=== PATIENT | male | born 1935 | race Caucasian/White ===

== ENCOUNTER 2018-10-20 12:16 | Inpatient (IN) ==
[2018-10-20] MEDS ORDERED: *HR* HYDROcodone/Acet 5/325 mg TABLET PO PRN (14:33)
[2018-10-20] MEDS: Amoxicillin/Clavulanate 500 MG TABLET PO SCH (15:36)
[2018-10-20] MEDS: Gabapentin 300 MG CAPSULE PO SCH ×2 (15:36→21:06)
--- NOTE | 2018-10-20 19:37 | Internal Med History&Physical ---
Date of Encounter: 10/20/18 Time of Encounter: 19:00 Assessment and Plan (1) Frequent falls Current visit: No Status: Acute PT and OT evaluation will be ordered. (2) Urinary retention due to benign prostatic hyperplasia Current visit: No Status: Acute Continue Flomax, Proscar, and Haines catheter with urology follow-up as scheduled. (3) Myalgia Current visit: Yes Status: Acute Workup will be ordered including RAMOS and sedimentation rate. (4) Hypothyroidism Current visit: Yes Status: Chronic TSH was normal at 2.216 on 10/16/2018. Continue present dose Synthroid. Qualifiers: Hypothyroidism type: unspecified Qualified Code(s): E03.9 - Hypothyroidism, unspecified (5) Atrial fibrillation Current visit: No Status: Chronic Continue Xarelto Qualifiers: Atrial fibrillation type: chronic Qualified Code(s): I48.2 - Chronic atrial fibrillation (6) Anemia Current visit: No Status: Acute Anemia testing 10/17/2018 showed iron 36, transferrin saturation 16%, transferrin 158, and ferritin 434. B12 and folate levels checked November 2017 were unremarkable. Suspect anemia due primarily to chronic kidney disease and/ or MDS. Qualifiers: Anemia type: unspecified type Qualified Code(s): D64.9 - Anemia, unspecified Internal Medicine - H&P: HPI Chief complaint: Urinary retention, falls Admitted From: Hospital to Hospital Transfer Plans for Post Hospital Care: Home History of present illness: Mr. Mera is a 83 year old male who was hospitalized at [facility] October 16- after presenting with progressive weakness and multiple falls at home. He had not sustain significant injury from the falls. He was found to have urinary retention despite use of financed her ride and Flomax and had Haines catheter placed which has remained present time. He was discharged [facility] swing bed for rehabilitation therapy prior to returning to independent living at home. He states his biggest complaint at present is "hurting all over". He reports the myalgias have been present for at least 6 months without etiology found. Reports present analgesics do not significantly relieve the pain and he has not slept well for several months. CT of thoracic and lumbar spine at [facility] showed compression fractures involving T3, T11, T12, and L2. He denies significant arthritis, gout, or other documented bone joint or muscle disorders. He does not use a cane or walker at home for ambulation. Past Med Surg Social Fam HX - Past Medical History Medical history: cancer, renal disease, thyroid disease Additional medical history: colon cancer, enlarged prostate Psychiatric history: no psych history - Past Surgical History Surgical History: cholecystectomy, colectomy Additional surgical history: colostomy - Social History Smoking Status: Never smoker Smokeless Tobacco Status: No Alcohol use: none Drug use: none Internal Medicine - H&P: Meds Rivaroxaban [Xarelto] 15 mg PO DAILY 05/21/18 [History] Furosemide [Lasix] 40 mg PO DAILY 07/07/18 [History] DULoxetine [Cymbalta] 60 mg PO DAILY 10/16/18 [History] Finasteride [Proscar] 5 mg PO DAILY 10/16/18 [History] Levothyroxine Sodium 88 mcg PO QAM 10/16/18 [History] Tamsulosin [Flomax] 0.4 mg PO DAILY 10/16/18 [History] Amoxicillin/Clavulanate [Augmentin] 500 mg PO BIDWM #6 tablet 10/20/18 [Rx] Gabapentin [Neurontin] 300 mg PO TID 10 Days #30 capsule 10/20/18 [Rx] HYDROcodone/Acet 5/325 mg [Mccall 5-325 mg] 1 tab PO Q8HR PRN 5 Days #15 tablet 10/20/18 [Rx] Allergy/AdvReac Type Severity Reaction Status Date / Time No Known Allergies Allergy Verified 08/04/18 12:04 All Systems PM: A 10-system review of systems was performed and is negative for pertinent findings except as documented above in the HPI. Review of systems: Gen.: He states his weight has been stable for several months Cardiovascular: He has history of chronic atrial fibrillation her denies hypertension AR heart failure angina DVT or pulmonary embolus Respiratory: He is a lifelong nonsmoker and denies chronic lung disease GI: He has had cholecystectomy remotely. He reports colon cancer with total colectomy and development of ileostomy approximately 2013. He denies disorders of his liver or exocrine pancreas. 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 He has an indwelling Haines at present for urinary retention Neurologic: He reports having a stroke approximately 6 months ago with no permanent neurologic deficit. He reports an embolectomy procedure (?) at the time of the "stroke". He denies seizures. Endocrine: He denies diabetes thyroid disease or hyperlipidemia. Medication list includes levothyroxin. Hematology/oncology: He has chronic anemia. He has been diagnosed with MDS. He denies internal malignancies or other blood disorders. Psychiatric: He denies anxiety depression or other mental health issues. Mus[place] skeletal: As per history of present illness - Constitutional Vitals: Temp Pulse Resp BP Pulse Ox 98.6 F 66 16 144/78 96 10/20/18 19:00 10/20/18 19:02 10/20/18 19:02 10/20/18 19:02 10/20/18 19:02 Exam: Gen.: He is a well-developed well-nourished male lying in bed who appears in no severe distress HEENT: Head is atraumatic and normal cephalic. Eyes: EOMI. There is no scleral icterus. Mouth: Mucosa is moist. Neck: Supple and nontender. There is no thyromegaly or adenopathy noted. Heart: Irregularly irregular without murmurs or gallops Lungs: No wheezes or crackles are heard. Abdomen: An ostomy bag is present in the right abdominal area. No masses or guarding are noted. Extremities: There is no pitting edema of his lower legs. He has minimal DJD changes of his hands. Neurologic: Mental status: He is talkative and a good historian. Cranial nerves: Smile is symmetric. Forehead wrinkles bilaterally. Tongue protrudes midline. EOMI. Motor: There is no pronator drift. Cerebellar: Finger to nose is intact bilaterally. Skin: Warm and dry
[2018-10-20] MEDS: *HR* HYDROcodone/Acet 5/325 mg TABLET PO SCH (21:41)
[2018-10-20] MEDS: traZODone 50 MG TABLET PO SCH (21:41)
[2018-10-21] MEDS: *HR* HYDROcodone/Acet 5/325 mg TABLET PO SCH ×6 (01:59→20:50)
[2018-10-21 06:44] LABS: Uric Acid 4.8 mg/dL (2.3-7.6)
[2018-10-21] MEDS: Furosemide 20 MG TABLET PO SCH (10:05)
[2018-10-21] MEDS: Finasteride 5 MG TABLET PO SCH (10:05)
[2018-10-21] MEDS: Gabapentin 300 MG CAPSULE PO SCH ×3 (10:05→20:50)
[2018-10-21] MEDS: Amoxicillin/Clavulanate 500 MG TABLET PO SCH ×2 (10:11→16:45)
--- NOTE | 2018-10-21 12:23 | Internal Med Progress Note ---
Date of Encounter: 10/21/18 Time of Encounter: 12:15 - Assessment and plan (1) Frequent falls Current Visit: No Status: Acute Assessment and plan: October 21. Continue PT/OT intervention. (2) Urinary retention due to benign prostatic hyperplasia Current Visit: No Status: Acute Assessment and plan: October 21. Continue Flomax, Proscar, and Haines catheter with urology follow-up as scheduled. (3) Myalgia Current Visit: Yes Status: Acute Assessment and plan: October 21. Workup in progress. Lab results unremarkable so far. (4) Hypothyroidism Current Visit: Yes Status: Chronic Assessment and plan: October 21. TSH was normal at 2.216 on 10/16/2018. Continue present dose Synthroid. Qualifiers: Hypothyroidism type: unspecified Qualified Code(s): E03.9 - Hypothyroidism, unspecified (5) Atrial fibrillation Current Visit: No Status: Chronic Assessment and plan: October 21. Continue Xarelto Qualifiers: Atrial fibrillation type: chronic Qualified Code(s): I48.2 - Chronic atrial fibrillation (6) Anemia Current Visit: No Status: Acute Assessment and plan: October 21. Anemia testing 10/17/2018 showed iron 36, transferrin saturation 16%, transferrin 158, and ferritin 434. B12 and folate levels checked November 2017 were unremarkable. Suspect anemia due primarily to chronic kidney disease and/ or MDS. Qualifiers: Anemia type: unspecified type Qualified Code(s): D64.9 - Anemia, unspecified - Subjective Interval history: October 21. He has no new complaints. He states he did not sleep any last night despite use of trazodone. - Constitutional Vitals: Temp Pulse Resp BP Pulse Ox 98.7 F 58 16 159/69 99 10/21/18 05:45 10/21/18 05:45 10/21/18 05:45 10/21/18 05:45 10/21/18 05:45 Exam: He is resting comfortably in bed and appears in no acute distress. His affect is overall cheerful. I reviewed his medications and lab results. Consult Discharge Plan - Plan Referrals: Michoacano Neal DO [Primary Care Provider] - 1 week
[2018-10-21 12:41] LABS: Vitamin B12 276 pg/mL (250-1100)
[2018-10-21 12:44] LABS: Vitamin D 25 Hydroxy 32 ng/mL (30-80)
[2018-10-21] MEDS: *HR* Rivaroxaban 15 MG TABLET PO SCH (16:45)
[2018-10-21] MEDS: traZODone 50 MG TABLET PO SCH (20:50)
[2018-10-22] MEDS: *HR* HYDROcodone/Acet 5/325 mg TABLET PO SCH ×7 (01:34→21:20)
[2018-10-22] MEDS: Amoxicillin/Clavulanate 500 MG TABLET PO SCH ×2 (09:47→16:59)
[2018-10-22] MEDS: Finasteride 5 MG TABLET PO SCH (09:48)
[2018-10-22] MEDS: Gabapentin 300 MG CAPSULE PO SCH ×3 (09:48→21:20)
[2018-10-22] MEDS: Furosemide 20 MG TABLET PO SCH (09:48)
--- NOTE | 2018-10-22 12:25 | Internal Med Progress Note ---
Date of Encounter: 10/22/18 Time of Encounter: 12:18 - Assessment and plan (1) Frequent falls Current Visit: No Status: Acute Assessment and plan: October 21. Continue PT/OT intervention. (2) Urinary retention due to benign prostatic hyperplasia Current Visit: No Status: Acute Assessment and plan: October 21. Continue Flomax, Proscar, and Haines catheter with urology follow-up as scheduled. (3) Myalgia Current Visit: Yes Status: Acute Assessment and plan: October 21. Workup in progress. Lab results unremarkable so far. October 22. ESR, uric acid, CK, and vitamin D unremarkable. Increase gabapentin. (4) Hypothyroidism Current Visit: Yes Status: Chronic Assessment and plan: October 21. TSH was normal at 2.216 on 10/16/2018. Continue present dose Synthroid. Qualifiers: Hypothyroidism type: unspecified Qualified Code(s): E03.9 - Hypothyroidism, unspecified (5) Atrial fibrillation Current Visit: No Status: Chronic Assessment and plan: October 21. Continue Xarelto Qualifiers: Atrial fibrillation type: chronic Qualified Code(s): I48.2 - Chronic atrial fibrillation (6) Anemia Current Visit: No Status: Acute Assessment and plan: October 21. Anemia testing 10/17/2018 showed iron 36, transferrin saturation 16%, transferrin 158, and ferritin 434. B12 and folate levels checked November 2017 were unremarkable. Suspect anemia due primarily to chronic kidney disease and/ or MDS. Qualifiers: Anemia type: unspecified type Qualified Code(s): D64.9 - Anemia, unspecified - Subjective Interval history: October 21. He has no new complaints. He states he did not sleep any last night despite use of trazodone. October 22. He has no new complaints. He states he slept more last night. He reports ongoing burning sensation/ paresthesias in his feet. - Constitutional Vitals: Temp Pulse Resp BP Pulse Ox 98.3 F 52 18 107/57 94 10/22/18 06:43 10/22/18 06:43 10/22/18 06:43 10/22/18 06:43 10/22/18 06:43 Exam: He is resting comfortably in bed and appears in no acute distress. His affect is overall cheerful. I reviewed his medications and lab results. Consult Discharge Plan - Plan Referrals: Ángel,Michoacano K, DO [Primary Care Provider] - 1 week
[2018-10-22] MEDS: *HR* Rivaroxaban 15 MG TABLET PO SCH (16:59)
[2018-10-22] MEDS: traZODone 50 MG TABLET PO SCH (21:20)
[2018-10-23] MEDS: *HR* HYDROcodone/Acet 5/325 mg TABLET PO SCH ×6 (03:00→21:32)
[2018-10-23] MEDS: Gabapentin 300 MG CAPSULE PO SCH ×3 (09:28→21:32)
[2018-10-23] MEDS: Amoxicillin/Clavulanate 500 MG TABLET PO SCH (09:28)
[2018-10-23] MEDS: Furosemide 20 MG TABLET PO SCH (09:28)
[2018-10-23] MEDS: Finasteride 5 MG TABLET PO SCH (09:29)
[2018-10-23 14:35] LABS: Aldolase, Serum 4.1 U/L (1.5-8.1)
[2018-10-23 14:53] LABS: ANA IgG by ELISA DETECTED (None Detected)
[2018-10-23] MEDS: *HR* Rivaroxaban 15 MG TABLET PO SCH (18:13)
[2018-10-23] MEDS: traZODone 50 MG TABLET PO SCH (21:32)
[2018-10-24] MEDS: *HR* HYDROcodone/Acet 5/325 mg TABLET PO SCH ×6 (03:42→21:33)
[2018-10-24 08:19] LABS: ANA HEp-2 IgG IFA <1:80 (<1:80)
[2018-10-24] MEDS: Gabapentin 300 MG CAPSULE PO SCH (09:46)
[2018-10-24] MEDS: Finasteride 5 MG TABLET PO SCH (09:46)
[2018-10-24] MEDS: Furosemide 20 MG TABLET PO SCH (09:47)
--- NOTE | 2018-10-24 14:37 | Internal Med Progress Note ---
Date of Encounter: 10/24/18 Time of Encounter: 14:25 - Assessment and plan (1) Frequent falls Current Visit: No Status: Acute Assessment and plan: October 21. Continue PT/OT intervention. (2) Urinary retention due to benign prostatic hyperplasia Current Visit: No Status: Acute Assessment and plan: October 21. Continue Flomax, Proscar, and Haines catheter with urology follow-up as scheduled. (3) Myalgia Current Visit: Yes Status: Acute Assessment and plan: October 21. Workup in progress. Lab results unremarkable so far. October 22. ESR, uric acid, CK, and vitamin D unremarkable. Increase gabapentin. October 24. RAMOS screen returned positive. Additional testing has been reflex ordered. Continue gabapentin. (4) Hypothyroidism Current Visit: Yes Status: Chronic Assessment and plan: October 21. TSH was normal at 2.216 on 10/16/2018. Continue present dose Synthroid. Qualifiers: Hypothyroidism type: unspecified Qualified Code(s): E03.9 - Hypothyroidism, unspecified (5) Atrial fibrillation Current Visit: No Status: Chronic Assessment and plan: October 21. Continue Xarelto Qualifiers: Atrial fibrillation type: chronic Qualified Code(s): I48.2 - Chronic atrial fibrillation (6) Anemia Current Visit: No Status: Acute Assessment and plan: October 21. Anemia testing 10/17/2018 showed iron 36, transferrin saturation 16%, transferrin 158, and ferritin 434. B12 and folate levels checked November 2017 were unremarkable. Suspect anemia due primarily to chronic kidney disease and/ or MDS. Qualifiers: Anemia type: unspecified type Qualified Code(s): D64.9 - Anemia, unspeci fied (7) Near syncope Current Visit: Yes Status: Resolved Assessment and plan: October 24. Now resolved. Etiology uncertain. Labs will be ordered. Orthostatic vital signs will be checked. - Subjective Interval history: October 21. He has no new complaints. He states he did not sleep any last night despite use of trazodone. October 22. He has no new complaints. He states he slept more last night. He reports ongoing burning sensation/ paresthesias in his feet. October 23. He developed significant weakness with decreased responsiveness while ambulating in the hallway with a therapist. He was assisted to a chair in the hallway by therapy staff. He denies dyspnea or pain at the present time. - Constitutional Vitals: Temp Pulse Resp BP Pulse Ox 98.1 F 56 16 145/63 99 10/24/18 06:39 10/24/18 12:32 10/24/18 12:32 10/24/18 12:32 10/24/18 12:32 Exam: He is sitting comfortably in a chair in the hallway and appears in no acute distress. Heart is regular without murmurs gallops or ectopics. Lungs are clear. I reviewed his medications and lab results. Consult Discharge Plan - Plan Referrals: Michoacano Neal DO [Primary Care Provider] - 1 week
[2018-10-24 16:19] LABS: Basophils % 0.2 %; Eosinophils # 0.1 K/mcL (0.0-0.6); Eosinophils % 2.3 %; Hematocrit 28.6 % (37.5-50.1); Hemoglobin 9.6 g/dL (12.9-16.9); Immature Granulocytes % 1.8 % (0-4); Lymphocytes % 18.2 %; Mean Corpuscular HGB Conc 33.6 g/dL (31.6-35.5); Mean Corpuscular Hemoglobin 33.3 pg (28.0-33.3); Mean Corpuscular Volume 99.3 fL (83.0-100.0); Mean Platelet Volume 10.5 fL (9.4-12.4); Monocytes # 0.6 K/mcL (0.0-1.3); Monocytes % 9.9 %; Neutrophils # 3.8 K/mcL (1.6-8.9); Platelet Count 234 K/mcL (140-400); Red Blood Count 2.88 M/mcL (4.19-5.50); Red Cell Distribution Width 14.7 % (11.5-14.5); Segmented Neutrophils % 67.6 %; White Blood Count 5.6 K/mcL (4.3-11.1)
[2018-10-24 16:32] LABS: Albumin 3.6 g/dL (3.5-5.7); Albumin/Globulin Ratio 1.3 (1.1-2.2); Bilirubin,Total 0.5 mg/dL (0.3-1.0); Calcium 9.5 mg/dL (8.6-10.3); Globulin 2.7 g/dL (2.4-3.5); Magnesium 1.9 mg/dL (1.6-2.6); Potassium 4.4 mEq/L (3.5-5.1); Total Protein 6.3 g/dL (6.4-8.9)
[2018-10-24] MEDS: predniSONE 10 MG TABLET PO SCH (17:19)
[2018-10-24] MEDS: *HR* Rivaroxaban 15 MG TABLET PO SCH (17:19)
[2018-10-24] MEDS: traZODone 50 MG TABLET PO SCH (21:31)
[2018-10-24] MEDS: Gabapentin 400 MG CAPSULE PO SCH (21:31)
[2018-10-25] MEDS: *HR* HYDROcodone/Acet 5/325 mg TABLET PO SCH ×6 (01:27→20:57)
[2018-10-25] MEDS: Gabapentin 300 MG CAPSULE PO SCH (01:29)
[2018-10-25 06:15] LABS: Basophils % 0.1 %; Eosinophils % 0.1 %; Hematocrit 27.2 % (37.5-50.1); Hemoglobin 9.2 g/dL (12.9-16.9); Lymphocytes # 1.2 K/mcL (0.6-4.6); Lymphocytes % 18.4 %; Mean Corpuscular HGB Conc 33.8 g/dL (31.6-35.5); Mean Corpuscular Hemoglobin 33.1 pg (28.0-33.3); Mean Corpuscular Volume 97.8 fL (83.0-100.0); Mean Platelet Volume 10.8 fL (9.4-12.4); Monocytes # 0.6 K/mcL (0.0-1.3); Monocytes % 8.4 %; Neutrophils # 4.9 K/mcL (1.6-8.9); Platelet Count 246 K/mcL (140-400); Red Blood Count 2.78 M/mcL (4.19-5.50); Red Cell Distribution Width 14.7 % (11.5-14.5); White Blood Count 6.8 K/mcL (4.3-11.1)
[2018-10-25 06:32] LABS: BUN/Creatinine Ratio 17 (6-26); Blood Urea Nitrogen 23 mg/dL (8-23); Calcium 9.7 mg/dL (8.6-10.3); Carbon Dioxide 27 mEq/L (23-29); Chloride 104 mEq/L (98-107); Glucose 111 mg/dL (70-105); Osmolality,Calculated 286 (280-300); Potassium 4.3 mEq/L (3.5-5.1); Sodium 136 mEq/L (136-145); eGFR For African Americans > 60 (> 60); eGFR For Non-African Americans 50 (> 60)
[2018-10-25] MEDS: Finasteride 5 MG TABLET PO SCH (09:24)
[2018-10-25] MEDS: Gabapentin 400 MG CAPSULE PO SCH ×3 (09:24→20:57)
[2018-10-25] MEDS: predniSONE 10 MG TABLET PO SCH ×2 (09:25→17:07)
--- NOTE | 2018-10-25 14:32 | Internal Med Progress Note ---
Date of Encounter: 10/25/18 Time of Encounter: 14:25 - Assessment and plan (1) Frequent falls Current Visit: No Status: Acute Assessment and plan: October 21. Continue PT/OT intervention. (2) Urinary retention due to benign prostatic hyperplasia Current Visit: No Status: Acute Assessment and plan: October 21. Continue Flomax, Proscar, and Haines catheter with urology follow-up as scheduled. October 25. Suspect Flomax and Proscar contributing significantly to orthostatic hypotension. These will be held. Haines catheter will remain at this time. (3) Myalgia Current Visit: Yes Status: Acute Assessment and plan: October 21. Workup in progress. Lab results unremarkable so far. October 22. ESR, uric acid, CK, and vitamin D unremarkable. Increase gabapentin. October 24. RAMOS screen returned positive. Additional testing has been reflex ordered. Continue gabapentin. October 25. RAMOS returned positive but < 1:80. He was started on low dose prednisone and given higher dose gabapentin and Cymbalta yesterday. He feels improved today. Continue present Rx. (4) Hypothyroidism Current Visit: Yes Status: Chronic Assessment and plan: October 21. TSH was normal at 2.216 on 10/16/2018. Continue present dose Synthroid. Qualifiers: Hypothyroidism type: unspecified Qualified Code(s): E03.9 - Hypothyroidism, unspecified (5) Atrial fibrillation Current Visit: No Status: Chronic Assessment and plan: October 21. Continue Xarelto Qualifiers: Atrial fibrillation type: chronic Qualified Code(s): I48.2 - Chronic atrial fibrillation (6) Anemia Current Visit: No Status: Acute Assessment and plan: October 21. Anemia testing 10/17/2018 showed iron 36, transferrin saturation 16%, transferrin 158, and ferritin 434. B12 and folate levels checked November 2017 were unremarkable. Suspect anemia due primarily to chronic kidney disease and/ or MDS. . MMA results pending. Qualifiers: Anemia type: unspecified type Qualified Code(s): D64.9 - Anemia, unspecified (7) Near syncope Current Visit: Yes Status: Acute Assessment and plan: October 24. Now resolved. Etiology uncertain. Labs will be ordered. Orthostatic vital signs will be checked. October 25. Orthostatic vital signs yesterday and today show systolic blood pressure drop of ~ 50 mm Hg. Flomax and Proscar will be held. - Subjective Interval history: October 21. He has no new complaints. He states he did not sleep any last night despite use of trazodone. October 22. He has no new complaints. He states he slept more last night. He reports ongoing burning sensation/ paresthesias in his feet. October 24. He developed significant weakness with decreased responsiveness while ambulating in the hallway with a therapist. He was assisted to a chair in the hallway by therapy staff. He denies dyspnea or pain at the present time. October 25. He has no new complaints and states he feels better with less pain. - Constitutional Vitals: Temp Pulse Resp BP Pulse Ox 98.9 F 54 18 143/63 95 10/25/18 07:46 10/25/18 07:46 10/25/18 07:46 10/25/18 07:46 10/25/18 07:46 Exam: He is resting comfortably in bed and appears in no acute distress. His affect is bright and cheerful. I reviewed his medications, lab results, and orthostatic vital signs. Internal Medicine: Result - Labs CBC & Chem 7: 10/25/18 05:30 10/25/18 05:30 Labs: Short CBC 10/24/18 10/25/18 Range/Units 15:43 05:30 WBC 5.6 6.8 (4.3-11.1) K/mcL Hgb 9.6 L 9.2 L (12.9-16.9) g/dL Hct 28.6 L 27.2 L (37.5-50.1) % Plt Count 234 246 (140-400) K/mcL Neutrophils # 3.8 4.9 (1.6-8.9) K/mcL BMP 10/24/18 10/25/18 15:43 05:30 Sodium 136 136 Potassium 4.4 4.3 Chloride 104 104 Carbon Dioxide 27 27 BUN 22 23 Creatinine 1.43 H 1.35 H Glucose 109 H 111 H Calcium 9.5 9.7 Liver Function 10/24/18 Range/Units 15:43 Total Bilirubin 0.5 (0.3-1.0) mg/dL AST 16 (13-39) Units/L ALT 16 (7-52) Units/L Alkaline Phosphatase 81 (34-104) Units/L Albumin 3.6 (3.5-5.7) g/dL Consult Discharge Plan - Plan Referrals: Michoacano Neal DO [Primary Care Provider] - 1 week
[2018-10-25] MEDS: *HR* Rivaroxaban 15 MG TABLET PO SCH (17:07)
[2018-10-25] MEDS: traZODone 50 MG TABLET PO SCH (20:57)
[2018-10-26] MEDS: *HR* HYDROcodone/Acet 5/325 mg TABLET PO SCH ×6 (04:55→20:24)
[2018-10-26] MEDS: predniSONE 10 MG TABLET PO SCH ×2 (08:41→16:13)
[2018-10-26] MEDS: Gabapentin 400 MG CAPSULE PO SCH ×3 (08:41→20:23)
--- NOTE | 2018-10-26 10:32 | Internal Med Progress Note ---
Date of Encounter: 10/26/18 Time of Encounter: 10:25 - Assessment and plan (1) Frequent falls Current Visit: No Status: Acute Assessment and plan: October 21. Continue PT/OT intervention. (2) Urinary retention due to benign prostatic hyperplasia Current Visit: No Status: Acute Assessment and plan: October 21. Continue Flomax, Proscar, and Haines catheter with urology follow-up as scheduled. October 25. Suspect Flomax and Proscar contributing significantly to orthostatic hypotension. These will be held. Haines catheter will remain at this time. (3) Myalgia Current Visit: Yes Status: Acute Assessment and plan: October 21. Workup in progress. Lab results unremarkable so far. October 22. ESR, uric acid, CK, and vitamin D unremarkable. Increase gabapentin. October 24. RAMOS screen returned positive. Additional testing has been reflex ordered. Continue gabapentin. October 25. RAMOS returned positive but < 1:80. He was started on low dose prednisone and given higher dose gabapentin and Cymbalta yesterday. He feels improved today. Continue present Rx. October 26. He feels further improved. Continue present Rx. (4) Hypothyroidism Current Visit: Yes Status: Chronic Assessment and plan: October 21. TSH was normal at 2.216 on 10/16/2018. Continue present dose Synthroid. Qualifiers: Hypothyroidism type: unspecified Qualified Code(s): E03.9 - Hypothyroidism, unspecified (5) Atrial fibrillation Current Visit: No Status: Chronic Assessment and plan: October 21. Continue Xarelto Qualifiers: Atrial fibrillation type: chronic Qualified Code(s): I48.2 - Chronic atrial fibrillation (6) Anemia Current Visit: No Status: Acute Assessment and plan: October 21. Anemia testing 10/17/2018 showed iron 36, transferrin saturation 16%, transferrin 158, and ferritin 434. B12 and folate levels checked November 2017 were unremarkable. Suspect anemia due primarily to chronic kidney disease and/ or MDS. October 25. MMA results pending. Qualifiers: Anemia type: unspecified type Qualified Code(s): D64.9 - Anemia, unspecified (7) Near syncope Current Visit: Yes Status: Acute Assessment and plan: October 24. Now resolved. Etiology uncertain. Labs will be ordered. Orthostati c vital signs will be checked. October 25. Orthostatic vital signs yesterday and today show systolic blood pressure drop of ~ 50 mm Hg. Flomax and Proscar will be held. October 26. Recheck orthostatic vital signs in a.m. - Subjective Interval history: October 21. He has no new complaints. He states he did not sleep any last night despite use of trazodone. October 22. He has no new complaints. He states he slept more last night. He reports ongoing burning sensation/ paresthesias in his feet. October 24. He developed significant weakness with decreased responsiveness while ambulating in the hallway with a therapist. He was assisted to a chair in the hallway by therapy staff. He denies dyspnea or pain at the present time. October 25. He has no new complaints and states he feels better with less pain. October 26. He has no new complaints. He states he ambulated significant distance yesterday without feeling lightheaded. He reports his pain has further lessened. - Constitutional Vitals: Temp Pulse Resp BP Pulse Ox 98.8 F 54 16 125/61 97 10/26/18 07:12 10/26/18 07:12 10/26/18 07:12 10/26/18 07:12 10/26/18 07:12 Exam: He is resting comfortably in bed and appears in no acute distress. His affect is bright and cheerful. I reviewed his medications and lab results. Internal Medicine: Result - Labs CBC & Chem 7: 10/25/18 05:30 10/25/18 05:30 Consult Discharge Plan - Plan Referrals: Michoacano Neal DO [Primary Care Provider] - 1 week
[2018-10-26] MEDS: *HR* Rivaroxaban 15 MG TABLET PO SCH (16:13)
[2018-10-26] MEDS: traZODone 50 MG TABLET PO SCH (20:23)
[2018-10-27] MEDS: *HR* HYDROcodone/Acet 5/325 mg TABLET PO SCH ×4 (00:13→12:30)
[2018-10-27] MEDS: predniSONE 10 MG TABLET PO SCH (09:21)
[2018-10-27] MEDS: Gabapentin 400 MG CAPSULE PO SCH ×2 (09:21→14:46)
--- NOTE | 2018-10-27 12:40 | Discharge Summary ---
Orders not resulted at time of discharge: Pending orders 10/25/18 05:30 MMA (VIT B12 STATUS) AM 0400 Date of Encounter: 10/27/18 Time of Encounter: 12:30 - Discharge Diagnosis (1) Frequent falls Priority: Primary Status: Acute (2) Urinary retention due to benign prostatic hyperplasia Priority: Secondary Status: Chronic (3) Myalgia Priority: Secondary Status: Acute (4) Hypothyroidism Priority: Secondary Status: Chronic Qualifiers: Hypothyroidism type: unspecified Qualified Code(s): E03.9 - Hypothyroidism, unspecified (5) Atrial fibrillation Priority: Secondary Status: Chronic Qualifiers: Atrial fibrillation type: chronic Qualified Code(s): I48.2 - Chronic atrial fibrillation (6) Anemia Priority: Secondary Status: Chronic Qualifiers: Anemia type: unspecified type Qualified Code(s): D64.9 - Anemia, unspecified (7) Near syncope Priority: Secondary Status: Acute (8) Orthostatic hypotension Priority: Secondary Status: Acute Hospital course: Mr. Mera is a 83 year old male who was hospitalized at [facility] October 16- after presenting with progressive weakness and multiple falls at home. He had not sustain significant injury from the falls. He was found to have urinary retention despite use of Proscar and Flomax and had Haines catheter placed which has remained in place. He was discharged to [facility] swing bed for rehabilitation therapy prior to returning to independent living at home. Initial orders were written by the discharging physicians at [facility]. I saw him on October 20 and performed a swing bed history and physical. He complained of constant severe myalgias/pain. Workup showed ESR 28, uric acid level 4.8, CK 36, aldolase 4.1, and vitamin D level 32. RAMOS return positive but at a level of < 1:80. He was given higher dose Cymbalta and gabapentin and started on low-dose prednisone. His pain had resolved by day of discharge. Orthostatic vital signs were done on October 25 after he had near syncopal episode. Blood pressure decreased from 143/63 lying to 96/55 standing. Flomax and Proscar were discontinued. Discharge that was initially planned for October 25 was held. On October 27 he felt significantly improved and wished to be discharged home. He will remain off Proscar and Flomax. He will continue gabapentin, prednisone, and Cymbalta at present doses. His PCP can determine if tapering prednisone and other medications should be considered. He had physical therapy and occupational therapy evaluation with ongoing interventions. He made satisfactory progress. He will follow with his PCP Dr. Neal within 1 week. - Time Spent with Patient Total time spent providing and/or coordinating discharge services: - Discharge Medications Prescriptions: New DULoxetine [Cymbalta] 90 mg PO DAILY #90 capsule. Gabapentin [Neurontin] 800 mg PO TID 30 Days #180 capsule predniSONE [PredniSONE] 10 mg PO BIDWM #14 tablet Continued Rivaroxaban [Xarelto] 15 mg PO DAILY Levothyroxine Sodium 88 mcg PO QAM HYDROcodone/Acet 5/325 mg [[place] 5-325 mg] 1 tab PO Q8HR PRN 5 Days #15 tablet PRN Reason: Moderate Pain Discontinued Furosemide [Lasix] 40 mg PO DAILY Finasteride [Proscar] 5 mg PO DAILY DULoxetine [Cymbalta] 60 mg PO DAILY Tamsulosin [Flomax] 0.4 mg PO DAILY Gabapentin [Neurontin] 300 mg PO TID 10 Days #30 capsule Ciprofloxacin [Cipro] 500 mg PO BID Home Medications: Rivaroxaban [Xarelto] 15 mg PO DAILY 05/21/18 [History] Levothyroxine Sodium 88 mcg PO QAM 10/16/18 [History] HYDROcodone/Acet 5/325 mg [[place] 5-325 mg] 1 tab PO Q8HR PRN 5 Days #15 tablet 10/20/18 [Rx] DULoxetine [Cymbalta] 90 mg PO DAILY #90 capsule. 10/27/18 [Rx] Gabapentin [Neurontin] 800 mg PO TID 30 Days #180 capsule 10/27/18 [Rx] predniSONE [PredniSONE] 10 mg PO BIDWM #14 tablet 10/27/18 [Rx] Allergies/Adverse Reactions: Allergy/AdvReac Type Severity Reaction Status Date / Time No Known Allergies Allergy Verified 08/04/18 12:04 Date of admission: 10/20/18 14:21 Primary care physician: Michoacano Neal DO Consults: 10/20/18 15:46 Consult to Steerer [CONS] Routine Reason for SW Consult: pt might be interested in home health 10/20/18 19:51 Consult to Occupational Therapy [CONS] Routine Comment: Evaluate, develop and implement POC Reason for Consult: Falls, weakness Does patient have active BEDREST order?: No Is patient medically & hemodynamically stable?: Yes Patient assessed for mobility or mobilized this visit?: Yes Consult to Physical Therapy [CONS] Routine Comment: Evaluate, develop and implement POC Reason for Consult: Falls, weakness Does patient have active BEDREST order?: No Is patient medically & hemodynamically stable?: Yes Patient assessed for mobility or mobilized this visit?: Yes - Constitutional Vitals: Temp Pulse Resp BP Pulse Ox 98.2 F 55 16 114/62 94 10/27/18 06:38 10/27/18 06:38 10/27/18 06:38 10/27/18 06:38 10/27/18 06:38 - Patient Status Disposition: Home, Self-Care - Discharge Instructions Follow Up With: Michoacano Neal DO [Primary Care Provider] - 1 week - Diet and Activity Activity: as per physical therapy Diet: advance to your usual diet
--- NOTE | 2018-10-27 12:48 | Physician Discharge Referral ---
Home Health/Hosp Referral Info Transfer to: Home Health Attending Provider: Bruno Provider in Charge Post Discharge: PCP (Michoacano Neal D.O.) - Diagnosis (1) Frequent falls Priority: Primary Status: Acute (2) Urinary retention due to benign prostatic hyperplasia Priority: Secondary Status: Chronic (3) Myalgia Priority: Secondary Status: Acute (4) Hypothyroidism Priority: Secondary Status: Chronic (5) Atrial fibrillation Priority: Secondary Status: Chronic (6) Anemia Priority: Secondary Status: Chronic (7) Near syncope Priority: Secondary Status: Acute (8) Orthostatic hypotension Priority: Secondary Status: Acute - Respiratory Orders Smoking Cessation: Smoking cessation has been advised. For more information, call the [place] Tobacco Quit Line at 7-375-LKBO-NOW. - Diet/Nutrition Diet/Nutrition Orders: Regular - Activity Activity Orders: Walker - Services Needed Following services are medically necessary services: Nursing, Home Health Aide, Physical Therapy, Occupational Therapy - Transfer Medications Prescriptions: DULoxetine [Cymbalta] 90 mg PO DAILY #90 capsule. Gabapentin [Neurontin] 800 mg PO TID 30 Days #180 capsule predniSONE [PredniSONE] 10 mg PO BIDWM #14 tablet Home Medications: Rivaroxaban [Xarelto] 15 mg PO DAILY 05/21/18 [History] Levothyroxine Sodium 88 mcg PO QAM 10/16/18 [History] HYDROcodone/Acet 5/325 mg [[place] 5-325 mg] 1 tab PO Q8HR PRN 5 Days #15 tablet 10/20/18 [Rx] DULoxetine [Cymbalta] 90 mg PO DAILY #90 capsule. 10/27/18 [Rx] Gabapentin [Neurontin] 800 mg PO TID 30 Days #180 capsule 10/27/18 [Rx] predniSONE [PredniSONE] 10 mg PO BIDWM #14 tablet 10/27/18 [Rx] Allergies/Adverse Reactions: Allergy/AdvReac Type Severity Reaction Status Date / Time No Known Allergies Allergy Verified 08/04/18 12:04 Certification: Further, I certify that my clinical findings support that this patient is homebound (i.e. absences from home require considerable and taxing effort and are for medical reasons or christianity services or infrequently or short duration when for other reasons) because: Homebound Reason: Leaving home requires considerable and taxing effort due to condition (Impaired walking ability, orthostatic hypotension) Attestation: My signature below is to certify that this patient is under my care and that I, or nurse practitioner, or a physician's assistant golf coach working with me, has a [id number] encounter with this patient.
[2018-10-27 13:16] VITALS: BP 149/69
== END 2018-10-27 14:50 | disposition home or self-care (01) | DRG 946 ==
LOC: INPPIK 14:21
PROVIDERS: ADMIT Internal Medicine; ATTEND Internal Medicine